=== PATIENT | female | born 1950 | race Caucasian/White ===

== ENCOUNTER 2018-12-12 22:34 | Observation (INO) ==
[2018-12-12] MEDS ORDERED: Ondansetron 4 MG/2 ML VIAL IVP ONE (22:36)
[2018-12-12] MEDS ORDERED: 0.9 % Sodium Chloride 1,000 ML IVC ONE (22:36)
--- NOTE | 2018-12-12 22:44 | Emergency Department Note ---
Disposition Clinical Impression: Benign paroxysmal positional vertigo, Vomiting Disposition: Admitted As Inpatient Condition: Good Referrals: Chad Cruz [Primary Care Provider] - Forms: ED Satisfaction Letter Time of Disposition: 23:58 ( WILL ADMIT ) Dizziness HPI - General Chief Complaint: ED Dizziness Stated Complaint: vomiting and dizzy Time Seen by Provider: 12/12/18 22:42 Source: EMS Mode of arrival: EMS Limitations: no limitations Nursing Notes Reviewed: Yes Vital Signs Reviewed: Yes - History of Present Illness HPI Narrative: 68-year-old female who presented to the emergency department via EMS with complaints of dizziness, associated with intractable nausea and vomiting. Patient states that she has been seen for this same complaint multiple times, and no one has told her what the issue is. She has been seen and [facility] and also [facility] for this. She reports nausea vomiting after stand ing up today with some associated dizziness. Any standing or movement causes her to get nauseous and throw up. Pt Subjective Complaint: dizziness, lightheadedness Timing: sudden onset Description: sense of movement History of similar episodes: Yes History of trauma: No Severity: moderate Improves with: remaining still Worsens with: nothing Associated symptoms: Reports: denies other symptoms - Related Data Home Medications Medication Instructions Recorded Confirmed Aspirin 81 mg PO DAILY 04/29/15 12/12/18 Insulin DETEMIR [Levemir] 35 unit SQ DAILY 04/29/15 12/12/18 Albuterol Sulfate [Ventolin Hfa] 18 gm IH Q4H PRN 08/24/16 12/12/18 Atorvastatin [Lipitor] 20 mg PO HS 08/24/16 12/12/18 Nitroglycerin [Nitrostat] 0.4 mg SL AD PRN 10/06/18 12/12/18 Doxycycline Hyclate [Vibramycin] 100 mg PO BID 12/12/18 12/12/18 Insulin ASPART [Novolog Flexpen] 10 unit SQ DAILY 12/12/18 12/12/18 Allergies Allergy/AdvReac Type Severity Reaction Status Date / Time Amoxicillin Allergy Hives Verified 01/16/16 18:01 Constitutional: Denies: fever, chills, weakness, weight change Eyes: Denies: eye pain, eye discharge, vision change ENT ED: Denies: ear pain, throat pain, dental pain, hearing loss, epistaxis, congestion, dysphagia Cardiovascular: Denies: chest pain, palpitations, dyspnea on exertion, edema, syncope Respiratory: Denies: cough, dyspnea, wheezes, hemoptysis, stridor Gastrointestinal: Denies: abdominal pain, nausea, vomiting, diarrhea, constipation, hematemesis, melena, hematochezia Genitourinary: Denies: dysuria, frequency, hematuria, discharge Musculoskeletal: Denies: back pain, neck pain, arthralgia, myalgia Integumentary: Denies: rash, abrasion, lesions Neurological: Denies: headache, weakness, numbness, paresthesias, confusion, abnormal gait, vertigo Psychiatric: Denies: anxiety, depression, suicidal thoughts, homicidal thoughts, auditory hallucinations, visual hallucinations Endocrine: Denies: fatigue Hematological/Lymphatic: Denies: easy bleeding, easy bruising Allergic/Immunologic: Denies: facial swelling, urticaria Past Medical History - Past Medical History Medical history: Reports: diabetes, hyperlipidemia, hypertension, myocardial infarction Surgical history: Reports: hysterectomy Psychiatric history: Reports: no psych history ANGLE BENDER history: Reports: no ANGLE BENDER history - Social History Smoking Status: Current every day smoker Smokeless Tobacco Status: No Alcohol use: Reports: none Drug use: Reports: none Physical Exam - General Limitations: no limitations General appearance: alert, in no apparent distress - Head Head exam: atraumatic, normocephalic, normal inspection - Eye Eye exam: Present: normal appearance, PERRL, EOMI - Expanded Eye Exam Pupils: Left: reactive - ENT ENT exam: normal exam, normal oropharynx, mucous membranes moist - Expanded ENT Exam External ear exam: Present: normal external inspection Mouth exam: Present: normal external inspection Teeth exam: Present: normal inspection Throat exam: Present: normal inspection - Neck Neck exam: Present: normal inspection, full ROM, trachea midline - Chest Chest inspection: Present: normal inspection, symmetric chest wall rise - Respiratory Respiratory exam: Present: normal lung sounds bilaterally - Cardiovascular Cardiovascular exam: Present: regular rate, normal rhythm, normal heart sounds - Abdominal Exam Abdominal exam: Present: soft, Non-Tender. Absent: tenderness, distention, guarding, rebound, rigidity - Extremities Exam Extremities exam: Present: normal inspection, full ROM. Absent: tenderness, pedal edema - Expanded Upper Extremity Exam Shoulder exam: Present: normal inspection, full ROM Arm exam: Present: normal inspection, full ROM Elbow exam: Present: normal inspection, full ROM Forearm/Wrist exam: Present: normal inspection, full ROM Hand exam: Present: normal inspection, full ROM Vascular exam: Normal: capillary refill, radial pulse - Expanded Lower Extremity Exam Hip/Pelvis exam: Present: normal inspection, full ROM Upper leg exam: Present: normal inspection, full ROM Knee exam: Present: normal inspection, full ROM Lower leg exam: Present: normal inspection, full ROM Ankle exam: Present: normal inspection, full ROM Foot/toe exam: Present: normal inspection, full ROM Neurovascular/Tendon exam: Absent: motor deficit, sensory deficit, tendon deficit - Back Exam Back exam: Present: normal inspection, full ROM. Absent: tenderness - Neurological Exam Neurological exam: Present: alert, oriented X3 - Expanded Neurological Exam Patient oriented to: Present: person, place, time Coma Scale Eye Opening: Spontaneous Coma Scale Motor Response: Obeys Commands Coma Scale Verbal Response: Oriented Coma Scale Total: 15 - Psychiatric Psychiatric exam: Present: normal affect, normal mood - Skin Skin exam: Present: warm, dry, intact, normal color Course Vital Signs Temperature 97.6 F 12/12/18 22:35 Pulse Rate 71 12/12/18 22:35 Respiratory Rate 17 12/12/18 22:35 Blood Pressure 164/69 12/12/18 22:35 O2 Sat by Pulse Oximetry 97 12/12/18 22:35 Temperature 97.6 F 12/12/18 22:35 Pulse Rate 63 12/12/18 23:35 Respiratory Rate 15 12/12/18 23:35 Blood Pressure 153/70 12/12/18 23:35 O2 Sat by Pulse Oximetry 97 12/12/18 23:35 Oxygen Delivery Oxygen Delivery Room Air Dizziness - MDM Narrative Medical decision making narrative: Labs are obtained patient was given IV normal saline Zofran 4 mg IV, if Antivert 50 mg by mouth. Labs are within normal limits other than mild elevated white count of 12,000. - Differential Diagnosis Likely: adverse reaction to drug, benign paroxysmal positional vertigo, orthostatic hypotension - Lab Data Lab results reviewed: Yes I reviewed the patient's lab results. Result diagrams: 12/12/18 22:56 12/12/18 22:56 Lab Results 12/12/18 12/12/18 Range/Units 22:56 22:56 WBC 12.8 H (4.3-11.1) K/mcL RBC 5.34 H (3.82-4.97) M/mcL Hgb 15.3 (11.5-15.4) g/dL Hct 45.9 H (35.3-44.9) % MCV 86.0 (83.0-100.0) fL MCH 28.7 (28.0-33.3) pg MCHC 33.3 (31.6-35.5) g/dL RDW 12.9 (11.5-14.5) % Plt Count 258 (140-400) K/mcL MPV 10.1 (9.4-12.4) fL Immature Gran % 0.3 (0-4) % Seg Neutrophils % 89.7 % Lymphocytes % 6.7 % Monocytes % 2.7 % Eosinophils % 0.2 % Basophils % 0.4 % Neutrophils # 11.5 H (1.6-8.9) K/mcL Lymphocytes # 0.9 (0.6-4.6) K/mcL Monocytes # 0.4 (0.0-1.3) K/mcL Eosinophils # 0.0 (0.0-0.6) K/mcL Basophils # 0.1 (0.0-0.2) K/mcL Sodium 141 (136-145) mEq/L Potassium 3.7 (3.5-5.1) mEq/L Chloride 104 (98-107) mEq/L Carbon Dioxide 27 (23-29) mEq/L BUN 23 (8-23) mg/dL Creatinine 0.91 (0.60-1.20) mg/dL Est GFR ( Amer) > 60 (> 60) Est GFR (Non-Af Amer) > 60 (> 60) BUN/Creatinine Ratio 25 (6-26) Glucose 212 H (70-105) mg/dL Calculated Osmolality 302 H (280-300) Calcium 9.1 (8.6-10.3) mg/dL Total Bilirubin 0.6 (0.3-1.0) mg/dL AST 11 L (13-39) Units/L ALT 9 (7-52) Units/L Alkaline Phosphatase 89 (34-104) Units/L Troponin I < 0.03 (< 0.04) ng/mL Serum Total Protein 7.0 (6.4-8.9) g/dL Albumin 3.8 (3.5-5.7) g/dL Globulin 3.2 (2.4-3.5) g/dL Albumin/Globulin Ratio 1.2 (1.1-2.2) - Radiology Data Radiology results reviewed: Yes I reviewed the patient's radiology results. CT of head shows no acute process, chest x-ray shows no acute process per radiology reading - EKG Data EKG attestation: Yes I reviewed and interpreted this EKG. EKG results narrative: NSR, T WAVE INVERSIONS LEADS V3 TO V6, NO CHANGE IN COMPARISON TO OLD EKG DONE 11/01/18 EKG shows normal: sinus rhythm Rhythm: NSR [place]/QRS: normal
[2018-12-12 23:03] LABS: Basophils # 0.1 K/mcL (0.0-0.2); Basophils % 0.4 %; Eosinophils % 0.2 %; Hematocrit 45.9 % (35.3-44.9); Hemoglobin 15.3 g/dL (11.5-15.4); Immature Granulocytes % 0.3 % (0-4); Lymphocytes # 0.9 K/mcL (0.6-4.6); Lymphocytes % 6.7 %; Mean Corpuscular HGB Conc 33.3 g/dL (31.6-35.5); Mean Corpuscular Hemoglobin 28.7 pg (28.0-33.3); Mean Platelet Volume 10.1 fL (9.4-12.4); Monocytes % 2.7 %; Neutrophils # 11.5 K/mcL (1.6-8.9); Platelet Count 258 K/mcL (140-400); Red Blood Count 5.34 M/mcL (3.82-4.97); Red Cell Distribution Width 12.9 % (11.5-14.5); Segmented Neutrophils % 89.7 %; White Blood Count 12.8 K/mcL (4.3-11.1)
[2018-12-12 23:05] LABS: Monocytes # 0.4 K/mcL (0.0-1.3)
[2018-12-12 23:48] LABS: Alanine Aminotransferase 9 Units/L (7-52); Albumin 3.8 g/dL (3.5-5.7); Albumin/Globulin Ratio 1.2 (1.1-2.2); Alkaline Phosphatase 89 Units/L (34-104); Aspartate Amino Transferase 11 Units/L (13-39); BUN/Creatinine Ratio 25 (6-26); Bilirubin,Total 0.6 mg/dL (0.3-1.0); Blood Urea Nitrogen 23 mg/dL (8-23); Calcium 9.1 mg/dL (8.6-10.3); Carbon Dioxide 27 mEq/L (23-29); Chloride 104 mEq/L (98-107); Globulin 3.2 g/dL (2.4-3.5); Glucose 212 mg/dL (70-105); Osmolality,Calculated 302 (280-300); Potassium 3.7 mEq/L (3.5-5.1); Sodium 141 mEq/L (136-145); eGFR For African Americans > 60 (> 60); eGFR For Non-African Americans > 60 (> 60)
[2018-12-12 23:51] LABS: Bilirubin,Urine Negative (Negative); Blood,Urine Trace-lysed (Negative); Clarity,Urine Cloudy (Clear); Color,Urine Yellow (Yellow); Glucose,Urine (UA) 500 mg/dL (Normal); Ketones,Urine Trace mg/dL (Negative); Leukocyte Esterase,Urine Small (Negative); Nitrite,Urine Negative (Negative); Protein,Urine Negative (Neg-Trace); Urobilinogen,Urine Normal (Normal)
[2018-12-12 23:52] LABS: Troponin I < 0.03 ng/mL (< 0.04)
[2018-12-13] MEDS ORDERED: Naloxone 0.4 MG/ML INJ IVP PRN ×2 (00:02→00:44)
[2018-12-13] MEDS ORDERED: Ondansetron 4 MG/2 ML VIAL IVP PRN ×3 (00:02→12:39)
[2018-12-13 00:18] LABS: Bacteria,Urine Many per hpf (None-Few); Hyaline Casts,Urine Few per lpf (None-Few); Squamous Epithelial Cell,Urine Many per lpf (None-Few)
[2018-12-13 00:21] LABS: Mucus,Urine Few (Few); RBC,Urine 0-3 per hpf (0-3); WBC,Urine 30-50 per hpf (0-3)
[2018-12-13] MEDS ORDERED: Nitroglycerin 0.4 MG TAB.SUBL SL PRN (00:44)
[2018-12-13] MEDS ORDERED: Dextrose Gel 15 GM/37.5 ML TUBE PO PRN ×2 (08:21)
[2018-12-13] MEDS ORDERED: D5% in Water 1,000 ML IVC PRN (08:21)
[2018-12-13] MEDS ORDERED: *HR* Dextrose 50 % in Water (Syg) 50 ML SYRINGE IVP PRN (08:21)
[2018-12-13] MEDS: Aspirin 81 MG TAB.CHEW PO SCH (08:28)
[2018-12-13] MEDS ORDERED: NON-FORMULARY MEDICATION 1 EACH EACH (Insulin Aspart [Novolog Flexpen] 10 UNIT) SQ SCH (09:00)
[2018-12-13] MEDS ORDERED: Insulin DETEMIR 100 UNIT/ML X5UNITS SQ SCH ×2 (09:00→21:00)
[2018-12-13] MEDS: Insulin LISPRO 300 UNITS/3 ML VIAL SQ SCH ×2 (12:13→16:42)
--- NOTE | 2018-12-13 12:16 | Internal Med History&Physical ---
Date of Encounter: 12/13/18 Time of Encounter: 11:30 Assessment and Plan (1) Acute gastroenteritis Current visit: Yes Status: Acute IV fluids will be ordered. Antiemetics will be given as needed. (2) Weight loss Current visit: Yes Status: Acute TSH was normal at 2.070 on 10/06/2018. CT of chest abdomen pelvis will be done to further evaluate. (3) Hypertension Current visit: Yes Status: Chronic Baseline blood pressure above desirable range but orthostatics show lying blood pressure 170/75 and standing 138/80. Recheck orthostatics prior to discharge. Qualifiers: Hypertension type: essential hypertension Qualified Code(s): I10 - Essential (primary) hypertension (4) ASHD (arteriosclerotic heart disease) Current visit: Yes Status: Acute Continue aspirin. (5) Tobacco abuse Current visit: Yes Status: Acute Room air oximetry will be checked on 6 minute walk prior to discharge. (6) DM type 2 (diabetes mellitus, type 2) Current visit: Yes Status: Chronic Hemoglobin A1c will be checked in a.m. Qualifiers: Diabetes mellitus superintendent container terminal insulin use: with fpc use Diabetes mellitus complication status: without complication Qualified Code(s): E11.9 - Type 2 diabetes mellitus without complications; Z79.4 - intermediate (current) use of insulin Internal Medicine - H&P: HPI Chief complaint: Vomiting and diarrhea Admitted From: Emergency Dept Plans for Post Hospital Care: Home History of present illness: Ms. Vogel is a 68 year old female who came to emergency room after having numerous episodes of nonbloody vomiting and diarrhea onset earlier the day of admission. She reports some mild abdominal discomfort in her mid abdominal area without significant radiation. She reports non-vertigo lightheadedness and weakness. She denies fevers chills or dysuria. She was evaluated in emergency room and was found to have leukocytosis with left shift. She was admitted to [facility] floor for ongoing care needs. She states she has had occasional similar symptoms for several weeks. She was seen in emergency room at [facility] 10/06/2018 with diplopia and was found to have hypertension. She was started on clonidine. She was seen again in [facility] ER 11/01/2018 with vomiting and was diagnosed with UTI. She was prescribed Keflex. She reports she has had intermittent vomiting occurring approximately every other day unrelated to food intake. She denies disorders of her liver gallbladder or exocrine pancreas. Past Med Surg Social Fam HX - Past Medical History Medical history: diabetes, hyperlipidemia, hypertension, myocardial infarction Additional medical history: 1 CARDIAC STENT Psychiatric history: no psych history - Past Surgical History Surgical History: hysterectomy Additional surgical history: heart stent x1 - Social History Smoking Status: Current every day smoker Packs per day: 0.5 Smokeless Tobacco Status: No Alcohol use: none Drug use: none Internal Medicine - H&P: Meds Aspirin 81 mg PO DAILY 04/29/15 [History] Insulin DETEMIR [Levemir] 35 unit SQ DAILY 04/29/15 [History] Albuterol Sulfate [Ventolin Hfa] 18 gm IH Q4H PRN 08/24/16 [History] Atorvastatin [Lipitor] 40 mg PO HS 08/24/16 [History] Nitroglycerin [Nitrostat] 0.4 mg SL AD PRN 10/06/18 [History] Doxycycline Hyclate [Vibramycin] 100 mg PO BID 12/12/18 [History] Insulin ASPART [Novolog Flexpen] 10 unit SQ DAILY 12/12/18 [History] Amlodipine Besylate 10 mg PO DAILY 12/13/18 [History] Empagliflozin [Jardiance] 10 mg PO DAILY 12/13/18 [History] Lisinopril [Zestril] 20 mg PO BID 12/13/18 [History] Metoprolol Tartrate 100 mg PO BID 12/13/18 [History] Allergy/AdvReac Type Severity Reaction Status Date / Time Amoxicillin Allergy Hives Verified 01/16/16 18:01 All Systems PM: A 10-system review of systems was performed and is negative for pertinent findings except as documented above in the HPI. Review of systems: Gen.: She states her weight has decreased approximately 35 pounds in the past 2 years, unintentionally Cardiovascular: She has history of hypertension. She reports 2 MIs with most recent 2001 with a single stent placed. She reports no further heart cath has been done. Regadenoson EST 03/26/2016 showed nondiagnostic EKG changes for ischemia due to baseline ST-T abnormalities. Perfusion imaging was negative for ischemia or infarct. The LVEF was 55%. Echocardiogram 03/26/2016 showed LVEF of 65%. No significant valvular abnormality was seen. The interventricular septum and posterior wall thickness measurements were 1.40 and 1.20 cm respectively. E/A ratio was 0.8. She denies DVT or pulmonary embolus. Respiratory: She has smoked since age 19 up to one pack per day. She denies chronic lung disease and does not use home oxygen. GI: As per history of present illness : She has had hysterectomy. She denies disorders of her kidney or bladder Neurologic: She denies large distribution strokes or seizures. Her family reports she has become more forgetful recently. She had a syncopal episode 2-3 weeks ago requiring her significant other to catch her from falling. She denies other syncopal or near-syncopal episodes. Endocrine: She was diagnosed with DM 2 approximately 2010. She has history of hyperlipidemia. She denies thyroid disease. Hematology/oncology: She denies blood disorders cancers or anemia Psychiatric: She denies anxiety depression or other mental health issues Musko skeletal: She denies arthritis gout or other bone joint or muscle disorders. - Constitutional Vitals: Temp Pulse Resp BP Pulse Ox 98.4 F 64 18 173/70 96 12/13/18 11:28 12/13/18 11:28 12/13/18 11:28 12/13/18 11:28 12/13/18 11:28 Exam: Gen.: She is a well-developed well-nourished female lying in bed who appears in no acute distress HEENT: Head is atraumatic and normocephalic. Eyes: EOMI. There is no scleral icterus. Mouth: Mucosa is dry Neck: There is no thyromegaly or adenopathy noted. Heart: Regular without murmurs gallops or ectopics Lungs: No wheezes or crackles are heard. Abdomen: Soft and nontender. No masses or guarding are noted. Extremities: There is no cyanosis edema or clubbing noted. Dorsalis pedis and posterior tibial pulses are trace palpable bilaterally. Neurologic: Mental status: She is talkative and a fair to good historian. She does not remember some details of her past history. Clock face drawing is accurate. Cranial nerves: Smile is symmetric. Forehead wrinkles bilaterally. Tongue protrudes midline. EOMI. Motor: There is no pronator drift. Cer ebellar: Finger to nose is intact bilaterally. Skin: Warm and dry Internal Med - H&P Results - Labs CBC & Chem 7: 12/12/18 22:56 12/12/18 22:56 Labs: Short CBC 12/12/18 Range/Units 22:56 WBC 12.8 H (4.3-11.1) K/mcL Hgb 15.3 (11.5-15.4) g/dL Hct 45.9 H (35.3-44.9) % Plt Count 258 (140-400) K/mcL Neutrophils # 11.5 H (1.6-8.9) K/mcL BMP 12/12/18 22:56 Sodium 141 Potassium 3.7 Chloride 104 Carbon Dioxide 27 BUN 23 Creatinine 0.91 Glucose 212 H Calcium 9.1 Cardiac Enzymes 12/12/18 Range/Units 22:56 Troponin I < 0.03 (< 0.04) ng/mL Liver Function 12/12/18 Range/Units 22:56 Total Bilirubin 0.6 (0.3-1.0) mg/dL AST 11 L (13-39) Units/L ALT 9 (7-52) Units/L Alkaline Phosphatase 89 (34-104) Units/L Albumin 3.8 (3.5-5.7) g/dL Urine 12/12/18 Range/Units 23:41 Urine Color Yellow (Yellow) Urine Clarity Cloudy A (Clear) Urine pH 5.0 (5.0-8.0) pH Units Ur Specific [place] 1.010 (1.010-1.025) Urine Protein Negative (Neg-Trace) mg/dL Urine Glucose (UA) 500 H (Normal) mg/dL - Impressions ITS Impressions Chest X-Ray 12/12/18 22:36 IMPRESSION: No acute findings. D/ / Jimbo Montero / Jimbo Montero Interpreting Provider: Jimbo Montero Head CT 12/12/18 22:36 IMPRESSION: No acute intracranial abnormality. D/ / Mark Jarquin MD / Mark Jarquin MD Interpreting Provider: Mark Jarquin MD
[2018-12-13] MEDS: 0.45 % Sodium Chloride w/KCl 20 MEQ/1,000 ML MLS IVC SCH ×2 (13:37→23:51)
[2018-12-13] MEDS ORDERED: Insulin LISPRO 300 UNITS/3 ML VIAL SQ SCH (21:00)
[2018-12-14] MEDS ORDERED: *HR* OxyCODONE/APAP 5/325 TABLET PO PRN (03:27)
[2018-12-14 05:23] LABS: Basophils # 0.1 K/mcL (0.0-0.2); Basophils % 0.9 %; Eosinophils # 0.2 K/mcL (0.0-0.6); Eosinophils % 2.8 %; Hematocrit 37.7 % (35.3-44.9); Hemoglobin 12.5 g/dL (11.5-15.4); Immature Granulocytes % 0.2 % (0-4); Lymphocytes # 2.7 K/mcL (0.6-4.6); Lymphocytes % 30.9 %; Mean Corpuscular HGB Conc 33.2 g/dL (31.6-35.5); Mean Corpuscular Hemoglobin 28.7 pg (28.0-33.3); Mean Corpuscular Volume 86.5 fL (83.0-100.0); Mean Platelet Volume 9.9 fL (9.4-12.4); Monocytes # 0.5 K/mcL (0.0-1.3); Neutrophils # 5.1 K/mcL (1.6-8.9); Platelet Count 228 K/mcL (140-400); Red Blood Count 4.36 M/mcL (3.82-4.97); Red Cell Distribution Width 12.8 % (11.5-14.5); Segmented Neutrophils % 59.2 %; White Blood Count 8.6 K/mcL (4.3-11.1)
[2018-12-14 05:41] LABS: BUN/Creatinine Ratio 22 (6-26); Blood Urea Nitrogen 17 mg/dL (8-23); Calcium 7.8 mg/dL (8.6-10.3); Carbon Dioxide 27 mEq/L (23-29); Chloride 108 mEq/L (98-107); Glucose 85 mg/dL (70-105); Osmolality,Calculated 293 (280-300); Potassium 3.5 mEq/L (3.5-5.1); Sodium 141 mEq/L (136-145); eGFR For African Americans > 60 (> 60); eGFR For Non-African Americans > 60 (> 60)
[2018-12-14 07:34] VITALS: BP 148/64
[2018-12-14] MEDS: Insulin LISPRO 300 UNITS/3 ML VIAL SQ SCH ×2 (10:42→11:42)
[2018-12-14] MEDS: Aspirin 81 MG TAB.CHEW PO SCH (10:42)
--- NOTE | 2018-12-14 11:07 | Discharge Summary ---
Orders not resulted at time of discharge: Pending orders 12/12/18 23:41 Culture,Urine [RM] Stat Date of Encounter: 12/14/18 Time of Encounter: 10:55 - Discharge Diagnosis (1) Acute gastroenteritis Priority: Primary Status: Acute (2) Weight loss Priority: Secondary Status: Acute (3) Hypertension Priority: Secondary Status: Chronic Qualifiers: Hypertension type: essential hypertension Qualified Code(s): I10 - Essential (primary) hypertension (4) ASHD (arteriosclerotic heart disease) Priority: Secondary Status: Acute (5) Tobacco abuse Priority: Secondary Status: Acute (6) DM type 2 (diabetes mellitus, type 2) Priority: Secondary Status: Chronic Qualifiers: Diabetes mellitus terminal make up operator insulin use: with terminal make up operator use Diabetes mellitus complication status: without complication Qualified Code(s): E11.9 - Type 2 diabetes mellitus without complications; Z79.4 - vermin exterminator (current) use of insulin Hospital course: Ms. Vogel is a 68 year old female who came to emergency room after having numerous episodes of nonbloody vomiting and diarrhea onset earlier the day of admission. She reports some mild abdominal discomfort in her mid abdominal area without significant radiation. She reports non-vertigo lightheadedness and weakness. She denies fevers chills or dysuria. She was evaluated in emergency room and was found to have leukocytosis with left shift. She was admitted to [facility] for ongoing care needs. Initial orders were written by the emergency room physician. I saw her on and performed the history and physical. She was given IV fluids. Antiemetics were given as needed. She had no further vomiting after admission to [facility]. She reported on December 14 she had adequate intake of food and fluids without nausea and wished to be discharged home. CT of chest abdomen and pelvis was done to further evaluate reported #35 weight loss. No abnormalities were seen suggestive of malignancy. A 3 mm nodule left upper lobe was noted. Her PCP can monitor as needed. Preliminary urine culture report showed gram-negative prabhu on day of discharge. She will be treated empirically with 3 days Macrobid with probiotic. Her PCP can follow up on culture report to ensure adequate coverage. Orthostatic vital signs on December 13 showed pressure decreasing from 178/75 lying to 138/80 standing. Heart rate showed bradycardia with rate as low as 48 the morning of December 14. Metoprolol dose will be decreased to 50 mg twice a day. Amlodipine will be taken at bedtime. Her PCP can monitor. She will be discharged home and follow with her PCP Dr. Chad Cruz within 1 week. Room air oximetry will be checked on 6 minute walk prior to discharge. - Time Spent with Patient Total time spent providing and/or coordinating discharge services: - Discharge Medications Prescriptions: New Lactobacillus [Culturelle] 1 each PO BID #6 cap.sprink Nitrofurantoin (BID) [Macrobid] 100 mg PO BID #6 capsule Continued Insulin DETEMIR [Levemir] 35 unit SQ DAILY Aspirin 81 mg PO DAILY Atorvastatin [Lipitor] 40 mg PO HS Nitroglycerin [Nitrostat] 0.4 mg SL AD PRN PRN Reason: Chest Pain Insulin ASPART [Novolog Flexpen] 10 unit SQ DAILY Lisinopril [Zestril] 20 mg PO BID Empagliflozin [Jardiance] 10 mg PO DAILY Albuterol Sulfate [Ventolin Hfa] 18 gm IH Q4H PRN #1 hfa.aer.ad PRN Reason: shortness of breath Changed Amlodipine Besylate 10 mg PO HS #0 Metoprolol Tartrate 50 mg PO BID #0 Discontinued Doxycycline Hyclate [Vibramycin] 100 mg PO BID Home Medications: Aspirin 81 mg PO DAILY 04/29/15 [History] Insulin DETEMIR [Levemir] 35 unit SQ DAILY 04/29/15 [History] Atorvastatin [Lipitor] 40 mg PO HS 08/24/16 [History] Nitroglycerin [Nitrostat] 0.4 mg SL AD PRN 10/06/18 [History] Insulin ASPART [Novolog Flexpen] 10 unit SQ DAILY 12/12/18 [History] Empagliflozin [Jardiance] 10 mg PO DAILY 12/13/18 [History] Lisinopril [Zestril] 20 mg PO BID 12/13/18 [History] Albuterol Sulfate [Ventolin Hfa] 18 gm IH Q4H PRN #1 hfa.aer.ad 12/14/18 [Rx] Amlodipine Besylate 10 mg PO HS #0 12/14/18 [Rx] Lactobacillus [Culturelle] 1 each PO BID #6 cap.sprink 12/14/18 [Rx] Metoprolol Tartrate 50 mg PO BID #0 12/14/18 [Rx] Nitrofurantoin (BID) [Macrobid] 100 mg PO BID #6 capsule 12/14/18 [Rx] Allergies/Adverse Reactions: Allergy/AdvReac Type Severity Reaction Status Date / Time Amoxicillin Allergy Hives Verified 01/16/16 18:01 Date of admission: 12/13/18 00:08 Primary care physician: Chad Cruz Consults: 12/13/18 00:53 Consult to Nutrition [CONS] Routine Comment: Consulting Provider: NUTRITION Reason for Dietary Consult: MST Score - Constitutional Vitals: Temp Pulse Resp BP Pulse Ox 97.6 F 52 16 148/64 96 12/14/18 07:33 12/14/18 08:01 12/14/18 08:01 12/14/18 07:33 12/14/18 07:33 - Patient Status Disposition: Home, Self-Care Condition: Good - Discharge Instructions Follow Up With: Chad Cruz [Primary Care Provider] - 1 week - Diet and Activity Activity: resume usual activities as tolerated Diet: diabetic diet
--- NOTE | 2018-12-14 12:00 | Physician Discharge Referral ---
Home Health/Hosp Referral Info Transfer to: Home Health Attending Provider: Deacon Provider in Charge Post Discharge: PCP (Chad Cruz M.D.) - Diagnosis (1) Acute gastroenteritis Priority: Primary Status: Acute (2) Weight loss Priority: Secondary Status: Acute (3) Hypertension Priority: Secondary Status: Chronic (4) ASHD (arteriosclerotic heart disease) Priority: Secondary Status: Chronic (5) Tobacco abuse Priority: Secondary Status: Chronic (6) DM type 2 (diabetes mellitus, type 2) Priority: Secondary Status: Chronic - Respiratory Orders Smoking Cessation: Smoking cessation has been advised. For more information, call the [place] Tobacco Quit Line at 0-129-ZJKT-NOW. - Diet/Nutrition Diet/Nutrition Orders: No Concentrated Sweets - Activity Activity Orders: Ambulate - Services Needed Following services are medically necessary services: Nursing, Home Health Aide, Physical Therapy, Occupational Therapy - Transfer Medications Prescriptions: Lactobacillus [Culturelle] 1 each PO BID #6 cap.sprink Nitrofurantoin (BID) [Macrobid] 100 mg PO BID #6 capsule Albuterol Sulfate [Ventolin Hfa] 18 gm IH Q4H PRN #1 hfa.aer.ad PRN Reason: shortness of breath Home Medications: Aspirin 81 mg PO DAILY 04/29/15 [History] Insulin DETEMIR [Levemir] 35 unit SQ DAILY 04/29/15 [History] Atorvastatin [Lipitor] 40 mg PO HS 08/24/16 [History] Nitroglycerin [Nitrostat] 0.4 mg SL AD PRN 10/06/18 [History] Insulin ASPART [Novolog Flexpen] 10 unit SQ DAILY 12/12/18 [History] Empagliflozin [Jardiance] 10 mg PO DAILY 12/13/18 [History] Lisinopril [Zestril] 20 mg PO BID 12/13/18 [History] Albuterol Sulfate [Ventolin Hfa] 18 gm IH Q4H PRN #1 hfa.aer.ad 12/14/18 [Rx] Amlodipine Besylate 10 mg PO HS #0 12/14/18 [Rx] Lactobacillus [Culturelle] 1 each PO BID #6 cap.sprink 12/14/18 [Rx] Metoprolol Tartrate 50 mg PO BID #0 12/14/18 [Rx] Nitrofurantoin (BID) [Macrobid] 100 mg PO BID #6 capsule 12/14/18 [Rx] Allergies/Adverse Reactions: Allergy/AdvReac Type Severity Reaction Status Date / Time Amoxicillin Allergy Hives Verified 01/16/16 18:01 Certification: Further, I certify that my clinical findings support that this patient is homebound (i.e. absences from home require considerable and taxing effort and are for medical reasons or rastafari services or infrequently or short duration when for other reasons) because: Homebound Reason: Leaving home requires considerable and taxing effort due to condition (Walking instability, orthostatic hypotension) Attestation: My signature below is to certify that this patient is under my care and that I, or nurse practitioner, or a physician's bankruptcy assistant working with me, has a [id number] encounter with this patient.
--- NOTE | 2018-12-14 16:36 | Electrocardiograph Report ---
[place] [id number] Test Date: 2018-12-12 Pat Name: Sheyla Vogel Department: EDP-16 Room: [facility] Gender: F Dinner Cook: : 1950 Requested By: Beth Nunez Order Number: [id number] Reading MD: Rut Linn Measurements Intervals [place] Rate: 65 P: 91 NC: 252 QRS: 46 QRSD: 119 T: -50 QT: 474 QTc: 493 Interpretive Statements Sinus rhythm Prolonged NC interval Nonspecific intraventricular conduction delay Repol abnrm suggests ischemia, anterolateral Borderline ST elevation, lateral leads Electronically Signed On 12-14-2018 16:34:33 EDT by Rut Linn
== END 2018-12-14 14:35 | disposition home or self-care (01) ==
LOC: EMEROOPIK 22:34 → INPPIK 22:34
PROVIDERS: ADMIT Internal Medicine; ATTEND Internal Medicine